=== PATIENT | male | born 1990 | race Caucasian/White ===

== ENCOUNTER 2019-05-27 09:45 | Emergency (ER) | payer SELFPAY ==
[2019-05-27] MEDS ORDERED: NA CHLORIDE 0.9% 1,000 ML ONE (10:27)
--- NOTE | 2019-05-27 10:50 | RAD REPORT ---
EXAM DESCRIPTION: CT - Head Brain Wo Cont - 05/27/2019 10:41 am CLINICAL HISTORY: Seizure COMPARISON: None. TECHNIQUE: Computed axial tomography of the head was obtained. IV contrast was not requested. All CT scans are performed using dose optimization technique as appropriate and may include automated exposure control or mA/KV adjustment according to patient size. FINDINGS: An intracranial bleed is not seen . The ventricles are normal in caliber. No extra-axial fluid collection is noted. Fluid within the sinuses/ mastoids is not seen. IMPRESSION: No acute intracranial abnormality is seen. If patient's symptoms persist MRI of the bra in would be recommended.
[2019-05-27 10:55] LABS: Absolute Lymphocytes (CBC) 1.4 K/uL (0.7-4.9); Basophils % 0.4 % (0-1.3); Hematocrit 42.2 % (39.6-49.0); Lymphocytes % 27.1 % (15.3-44.8); MPV 7.8 fL (7.6-11.3); RBC Red Blood Cell Count 4.87 M/uL (4.33-5.43)
[2019-05-27 10:59] LABS: Protime INR 1.06
[2019-05-27 11:20] LABS: ALT/SGPT 21 U/L (12-78); AST/SGOT 16 U/L (15-37); Albumin 4.3 g/dL (3.4-5.0); Alkaline Phosphatase 75 U/L (45-117); BUN Blood Urea Nitrogen 14 mg/dL (7-18); Bicarbonate 29 mmol/L (21-32); Bilirubin Direct 0.1 mg/dL (0-0.2); Bilirubin Total 0.4 mg/dL (0.2-1.0); Glucose Level 98 mg/dL (74-106); Potassium 4.8 mmol/L (3.5-5.1); Protein, Total 8.5 g/dL (6.4-8.2); Sodium Level 141 mmol/L (136-145)
[2019-05-27] MEDS ORDERED: KETOROLAC 30 MG/ML INJ ONE (11:27)
[2019-05-27 11:33] LABS: Barbiturates NEGATIVE (NEGATIVE); Benzodiazepines NEGATIVE (NEGATIVE); Cocaine NEGATIVE (NEGATIVE); METHAMPHETAM NEGATIVE (NEGATIVE); Methadone NEGATIVE (NEGATIVE); Opiates NEGATIVE (NEGATIVE); Phencyclidine NEGATIVE (NEGATIVE); THC Cannibis NEGATIVE (NEGATIVE)
--- NOTE | 2019-05-27 11:44 | EDPHYS ---
Physician Documentation [facility] Name: Adrian Rodriguez Age: 29 yrs Sex: Male : 1990 Arrival Date: 05/27/2019 Time: 09:49 Bed 5 Private MD: ED Physician Mekhi Zarate HPI: 05/27 10:59 This 29 yrs old Male presents to ER via EMS with complaints of Seizure. jr8 10:59 The patient presents after having a single isolated seizure, that lasted 3 minute(s), jr8 the episode(s) was witnessed, by co-worker(s). Character of seizure(s): Loss of consciousness: the patient experienced loss of consciousness, Motor activity: generalized, Incontinence: none, Apnea: the patient did not experience apnea, Circulation: the patient did not experience evidence of pulse disturbance, Eye movements: are unknown. Seizure onset: just prior to arrival. Current symptoms: Currently, the patient is not experiencing any symptoms, the patient feels back to baseline, no decreased level of consciousness, no confusion, no dysphasia, no headache, no paralysis, no visual changes. The patient has experienced a previous episode, was secondary to taking too much Tramadol . The patient has not recently seen a physician. Stated that he missed dose of Wellbutrin yesterday. Took two this AM. Started to feel different. While at work had seizure on ladder. Was with co-workers when it happened. Lowered him down. No trauma that they were aware of . Historical: - Allergies: 09:59 No Known Allergies; ah - Home Meds: 09:59 Wellbutrin Oral [Active]; - PMHx: 09:59 None; - PSHx: 09:59 None; - Immunization history:: Flu vaccine is not up to date. - Social history:: Patient uses dip, Smoking status: . ROS: 10:59 Eyes: Negative for injury, pain, redness, and discharge, ENT: Negative for injury, jr8 pain, and discharge, Neck: Negative for injury, pain, and swelling, Cardiovascular: Negative for chest pain, palpitations, and edema, Respiratory: Negative for shortness of breath, cough, wheezing, and pleuritic chest pain, Abdomen/GI: Negative for abdominal pain, nausea, vomiting, diarrhea, and constipation, Back: Negative for injury and pain, MS/Extremity: Negative for injury and deformity, Skin: Negative for injury, rash, and discoloration. 10:59 Neuro: Positive for seizure activity. Exam: 10:59 Head/Face: Normocephalic, atraumatic. Eyes: Pupils equal round and reactive to light, jr8 extra-ocular motions intact. Lids and lashes normal. Conjunctiva and sclera are non-icteric and not injected. Cornea within normal limits. Periorbital areas with no swelling, redness, or edema. ENT: Nares patent. No nasal discharge, no septal abnormalities noted. Tympanic membranes are normal and external auditory canals are clear. Oropharynx with no redness, swelling, or masses, exudates, or evidence of obstruction, uvula midline. Mucous membranes moist. Neck: Trachea midline, no thyromegaly or masses palpated, and no cervical lymphadenopathy. Supple, full range of motion without nuchal rigidity, or vertebral point tenderness. No Meningismus. Chest/axilla: Normal chest wall appearance and motion. Nontender with no deformity. No lesions are appreciated. Cardiovascular: Regular rate and rhythm with a normal S1 and S2. No gallops, murmurs, or rubs. Normal PMI, no JVD. No pulse deficits. Respiratory: Lungs have equal breath sounds bilaterally, clear to auscultation and percussion. No rales, rhonchi or wheezes noted. No increased work of breathing, no retractions or nasal flaring. Abdomen/GI: Soft, non-tender, with normal bowel sounds. No distension or tympany. No guarding or rebound. No evidence of tenderness throughout. Back: No spinal tenderness. No costovertebral tenderness. Full range of motion. Skin: Warm, dry with normal turgor. Normal color with no rashes, no lesions, and no evidence of cellulitis. Mild abrasive sears noted to right mid back without tenderness MS/ Extremity: Pulses equal, no cyanosis. Neurovascular intact. Full, normal range of motion. Neuro: Awake and alert, GCS 15, oriented to person, place, time, and situation. Cranial nerves II-XII grossly intact. Motor strength 5/5 in all extremities. Sensory grossly intact. Cerebellar exam normal. Normal gait. 11:30 ECG was reviewed by the Attending Physician. [facility] Vital Signs: 09:47 BP 122 / 89; Pulse 97; Resp 17; Pulse Ox 97% ; ah 09:53 BP 122 / 89; Pulse 104; Resp 16; Temp 97.8; Pulse Ox 99% ; Weight 74.84 kg; Height 5 ah ft. 5 in. (165.10 cm); Pain 0/10; 11:24 BP 121 / 79; Pulse 79; Resp 18; Pulse Ox 99% ; Pain 5/10; ah 09:53 Body Mass Index 27.46 (74.84 kg, 165.10 cm) [place] Coma Score: 10:05 Eye Response: spontaneous(4). Verbal Response: oriented(5). Motor Response: obeys commands(6). Total: 15. MDM: 10:16 Patient medically screened. 8 11:40 Data reviewed: vital signs, nurses notes, lab test result(s), EKG, radiologic studies, [facility] CT scan, and as a result, I will discharge patient. Data interpreted: Pulse oximetry: on room air is 99 %. Interpretation: normal. Counseling: I had a detailed discussion with the patient and/or guardian regarding: the historical points, exam findings, and any diagnostic results supporting the discharge/admit diagnosis, lab results, radiology results, the need for outpatient follow up, a family practitioner, to return to the emergency department if symptoms worsen or persist or if there are any questions or concerns that arise at home. Response to treatment: the patient's symptoms have resolved after treatment, patient is well hydrated. ED course: Discussed with patient that he most likely had seizure because he took too much of his Wellbutrin. Known side effect profile of this medication. Should not take this medicine any longer and needs to talk to PCP about this. 05/27 10:16 Order name: Acetaminophen; Complete Time: :05/27 10:16 Order name: Basic Metabolic Panel; Complete Time: :05/27 10:16 Order name: CBC with Diff; Complete Time: 10:58 05/27 10:16 Order name: ETOH Level; Complete Time: 11:05/27 10:16 Order name: Hepatic Function; Complete Time: 11:05/27 10:16 Order name: PT-INR; Complete Time: 11:05/27 10:16 Order name: Ptt, Activated; Complete Time: 11:05/27 10:16 Order name: Salicylate; Complete Time: 11:22 05/27 10:16 Order name: Urine Drug Screen; Complete Time: 11:40 05/27 10:16 Order name: EKG; Complete Time: 10:17 05/27 10:17 Order name: CT Head Brain wo Cont; Complete Time: 10:58 05/27 11:17 Order name: Urine Dipstick--Ancillary (enter results) 3 05/27 10:16 Order name: EKG - Nurse/Tech; Complete Time: 11:20 05/27 10:16 Order name: IV Saline Lock; Complete Time: 10:38 05/27 10:16 Order name: Labs collected and sent; Complete Time: 10:38 05/27 10:16 Order name: Urine Dipstick-Ancillary (obtain specimen); Complete Time: 11:19 EC:30 Rate is 81 beats/min. Rhythm is regular, Normal Sinus Rhythm. QRS [place] is Normal. DC jr8 interval is normal at 156 msec. QRS interval is normal at 90 msec. QT interval is normal at 448 msec. No Q waves. T waves are Normal. No ST changes noted. Clinical impression: Normal ECG and No evidence of ischemia. Interpreted by me. Reviewed by me. Administered Medications: 10:45 Drug: NS 0.9% 1000 ml Route: IV; Rate: 1000 ml; Site: left antecubital; 12:02 Follow up: Response: No adverse reaction; IV Status: Completed infusion; IV Intake: ah 1000ml 11:25 Drug: TORadol - Ketorolac 15 mg Route: IVP; Site: left antecubital; 12:01 Follow up: Response: No adverse reaction; Pain is decreased Disposition: 17:45 Co-signature as Attending Physician, Mekhi Zarate MD Chart signed for administrative ps1 purposes. . Disposition: 05/27/19 11:43 Discharged to Home. Impression: Seizure . - Condition is Stable. - Discharge Instructions: Nonepileptic Seizures, Seizure, Adult. - Medication Reconciliation Form, Thank You Letter, Antibiotic Education, Prescription Opioid Use form. - Follow up: Dexter Hawkins MD; When: 1 week; Reason: Recheck today's complaints, Continuance of care, Re-evaluation by your physician. - Problem is new. - Symptoms have improved. Signatures: Dispatcher [employer] EDMS Brenden Cuba PA PA jr8 Mekhi Zarate MD MD [id number] Amparo Dias RN RN Corrections: (The following items were deleted from the chart) 12:04 11:43 05/27/2019 11:43 Discharged to Home. Impression: Seizure . Condition is Stable. ah Forms are Medication Reconciliation Form, Thank You Letter, Antibiotic Education, Prescription Opioid Use. Follow up: Dexter Hawkins; When: 1 week; Reason: Recheck today's complaints, Continuance of care, Re-evaluation by your physician. Problem is new. Symptoms have improved. jr8
--- NOTE | 2019-05-27 11:44 | ER ---
Nurse's Notes [facility] Name: Adrian Rodriguez Age: 29 yrs Sex: Male : 1990 Arrival Date: 05/27/2019 Time: 09:49 Bed 5 Private MD: Diagnosis: Seizure Presentation: 05/27 09:53 Chief complaint: EMS states: that Pt was on a ladder this morning at work and froze and ah dropped all of his tools so a worker helped him down. He states that he seized for about 2-3 mins and foamed at the mouth. He has had one other seizure about 8-9 years ago. Pt states that he started welbutrin BID about 1 week ago, and today he took 2 this morning. Coronavirus screen: The patient has NOT traveled to [place] in the past 14 days. The patient has NOT had contact with known and/or suspected case of Coronavirus. Ebola Screen: No symptoms or risks identified at this time. Initial Sepsis Screen: Does the patient meet any 2 criteria? No. Patient's initial sepsis screen is negative. Does the patient have a suspected source of infection? Yes: No. Patient's initial sepsis screen is negative. Risk Assessment: Do you want to hurt yourself or someone else? Patient reports no desire to harm self or others. Note EMS states that upon arrival, Pt was up walking around and talking with co workers. 09:53 Method Of Arrival: EMS: [facility] 09:53 Acuity: MIMI 3 10:02 Care prior to arrival: IV initiated. 20 GA, in the left antecubital area. 11:35 Onset of symptoms was May 27, 2019. Triage Assessment: 10:05 General: Appears in no apparent distress. Behavior is calm, cooperative. Pain: Denies pain. EENT: No signs and/or symptoms were reported regarding the EENT system. Neuro: Level of Consciousness is awake, alert, obeys commands, Oriented to person, place, time, situation, Appropriate for age It Risk Advisor are equal bilaterally Moves all extremities. Speech is normal, Facial symmetry appears normal, Pupils are PERRLA. Cardiovascular: Heart tones S1 S2 present. Cardiovascular:. Respiratory: Airway is patent Respiratory effort is even, unlabored, Respiratory pattern is regular, : No signs and/or symptoms were reported regarding the genitourinary system. Derm: Skin is intact, is healthy with good turgor. Historical: - Allergies: 09:59 No Known Allergies; - Home Meds: :59 Wellbutrin Oral [Active]; - PMHx: :59 None; - PSHx: 09:59 None; - Immunization history:: Flu vaccine is not up to date. - Social history:: Patient uses dip, Smoking status: . Screenin:47 Abuse screen: Denies threats or abuse. Nutritional screening: No deficits noted. Tuberculosis screening: No symptoms or risk factors identified. Fall Risk None identified. Assessment: 10:02 General: Appears in no apparent distress. Behavior is calm, cooperative. Pain: Denies pain. Neuro: Level of Consciousness is awake, Oriented to person, place, time, situation, It Risk Advisor are equal bilaterally Gait is steady, Speech is normal, Facial symmetry appears normal, Pupils are PERRLA. Cardiovascular: Heart tones S1 S2 present Capillary refill < 3 seconds Patient's skin is warm and dry. Respiratory: Airway is patent Respiratory effort is even, unlabored, Respiratory pattern is regular, Breath sounds are clear bilaterally. GI: No signs and/or symptoms were reported involving the gastrointestinal system. Abdomen is non-distended, Bowel sounds present X 4 quads. : No signs and/or symptoms were reported regarding the genitourinary system. Derm: Skin is intact, Skin is dry, Skin is pink, warm \T\ dry. Musculoskeletal: No signs and/or symptoms reported regarding the musculoskeletal system. 11:26 Reassessment: Patient appears in no apparent distress at this time. Patient is alert, ah oriented x 3, equal unlabored respirations, skin warm/dry/pink. Pt states that he does not think he was lowered to the ground. He states that he fell. Pt does have abrasions noted to the middle of his back. Pain: Complains of pain in right shoulder pain Pain does not radiate. Pain currently is 5 out of 10 on a pain scale. at worst was 8 out of 10 on a pain scale. Quality of pain is described as aching, dull, Is continuous, Aggravated by increased activity. Vital Signs: 09:47 BP 122 / 89; Pulse 97; Resp 17; Pulse Ox 97% ; ah 09:53 BP 122 / 89; Pulse 104; Resp 16; Temp 97.8; Pulse Ox 99% ; Weight 74.84 kg; Height 5 ah ft. 5 in. (165.10 cm); Pain 0/10; 11:24 BP 121 / 79; Pulse 79; Resp 18; Pulse Ox 99% ; Pain 5/10; ah 09:53 Body Mass Index 27.46 (74.84 kg, 165.10 cm) ah [place] Coma Score: 10:05 Eye Response: spontaneous(4). Verbal Response: oriented(5). Motor Response: obeys commands(6). Total: 15. ED Course: 09:49 Patient arrived in ED. sv 09:49 Amparo Dias, RN is Primary Nurse. sv 09:56 Arm band placed on Patient placed in an exam room. sv 09:56 Patient has correct armband on for positive identification. Bed in low position. Call sv light in reach. Side rails up X2. Seizure precautions initiated. Pulse ox on. NIBP on. Head of bed elevated. 09:58 Triage completed. 09:59 Brenden Cuba [facility]. jr8 09:59 Mekhi Zraate MD is Attending Physician. jr8 10:39 Initial lab(s) drawn, by az, sent to lab. Maintain EMS IV. Dressing intact. Site clean ah \T\ dry. Gauge \T\ site: 20g left ac. 10:[address] via stretcher. ah 10:42 CT Head Brain wo Cont In Process Unspecified. EDMS 11:18 Urine Dipstick--Ancillary (enter results) Sent. sv 11:42 Dexter Hawkins MD is Referral Physician. jr8 11:58 No provider procedures requiring assistance completed. intact, bleeding controlled, No ah redness/swelling at site. Pressure dressing applied. Administered Medications: 10:45 Drug: NS 0.9% 1000 ml Route: IV; Rate: 1000 ml; Site: left antecubital; 12:02 Follow up: Response: No adverse reaction; IV Status: Completed infusion; IV Intake: ah 1000ml 11:25 Drug: TORadol - Ketorolac 15 mg Route: IVP; Site: left antecubital; 12:01 Follow up: Response: No adverse reaction; Pain is decreased ah Intake: 12:02 IV: 1000ml; Total: 1000ml. Outcome: 11:43 Discharge ordered by MD. jr8 11:59 Discharged to home ambulatory. 11:59 Condition: good 11:59 Discharge instructions given to patient, Instructed on discharge instructions, follow up and referral plans. Demonstrated understanding of instructions, follow-up care. 12:04 Patient left the ED. Signatures: Dispatcher [employer] EDMS Porsha Zimmerman RN RN sv Roszak, Josh, PA PA jr8 Harris, Amy, RN RN Corrections: (The following items were deleted from the chart) 11:29 11:26 Reassessment: Patient appears in no apparent distress at this time. Patient is alert, oriented x 3, equal unlabored respirations, skin warm/dry/pink.
[2019-05-27 12:12] VITALS: TEMP 97.8; O2SAT 99
[2019-05-27 12:14] VITALS: BP 121/79
[2019-05-27 12:40] LABS: Urine Blood NEGATIVE (NEG); Urine Glucose NEGATIVE (NEG); Urine Protein 1+ (NEG); Urine Specific Gravity >1.030 (1.005-1.030)
--- NOTE | 2019-05-27 13:17 | EKG ---
Test Date: 2019-05-27 Test Time: 10:44:57 Speech Language Pathologist Travel: [place] MEASUREMENT RESULTS: Intervals: Rate: 81 ID: [id number] QRSD: 90 QT: 386 QTc: 448 [place]: P: 65 ID: [id number] QRS: 37 T: 76 INTERPRETIVE STATEMENTS: Normal sinus rhythm Normal ECG No previous ECG available for comparison Electronically Signed On 05-27-19 13:16:11 DIGITAL DESIGN ENGINEER by Jay Jay Galvin
== END 2019-05-27 12:04 | disposition home or self-care (01) ==
LOC: ER 09:45
DX: R56.9 Unspecified convulsions (principal)
CPT/HCPCS: 36415; 70450; 80048; 80076; 80307; 80320; 80329; 81003; 85025; 85610; 85730; 93005; 96361; 96374; 99284; J7030